=== PATIENT | female | born 1930 ===

== ENCOUNTER 2017-03-19 10:20 | Outpatient (CLI) | payer MEDICARE, BC | END 2017-03-19 10:21 | disposition home or self-care (01) | DRG 536 | LOC: CONVCARE 10:20 | PROVIDERS: ATTEND Orthopaedic Surgery | DX: S72.111A Displaced fracture of greater trochanter of right femur, initial encounter for closed fracture (principal); Z96.641 Presence of right artificial hip joint; W19.XXXA Unspecified fall, initial encounter | CPT/HCPCS: 73502; 73552 ==

== ENCOUNTER 2017-04-09 11:01 | Outpatient (CLI) | payer MEDICARE, BC | END 2017-04-09 11:02 | disposition home or self-care (01) | DRG 561 | LOC: CONVCARE 11:01 | PROVIDERS: ATTEND Orthopaedic Surgery | DX: S72.114D Nondisplaced fracture of greater trochanter of right femur, subsequent encounter for closed fracture with routine healing (principal) | CPT/HCPCS: 73502 ==

== ENCOUNTER 2017-05-14 11:15 | Outpatient (CLI) | payer MEDICARE, BC | END 2017-05-14 11:16 | disposition home or self-care (01) | DRG 561 | LOC: RAD 11:15 | PROVIDERS: ATTEND Orthopaedic Surgery | DX: S72.114D Nondisplaced fracture of greater trochanter of right femur, subsequent encounter for closed fracture with routine healing (principal) | CPT/HCPCS: 73502 ==